=== PATIENT | male | born 1940 | race Caucasian/White ===

== ENCOUNTER → 2017-03-11 | Outpatient (CLI) | payer OTHER, BC ==
[2015-09-19 13:10] VITALS: BP 126/84; PULSE 59
[~2017-03-11] MED LIST: ASPI81TA21 PO; FESO4TAB PO; FISHOIL PO; MULTTAB PO; OMEP10CA2 PO
[2017-03-11 12:57] VITALS: BP 148/91; PULSE 78; TEMP 36.8; O2SAT 96
--- NOTE | 2017-03-11 13:35 | Radiation Oncology Follow-Up ---
Radiation Oncology Follow-Up Date of Visit Mar 11, 2017. 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 His urinary status is stable. He gave an AUA score of 12. Last year his score was 12. He completed expanded prostate cancer index composite for clinical practice and gave a score of 5 of 12 and urinary incontinence symptoms. He was score 3 of 12 urinary irritation symptoms. He gave a score 0 12 in bowel symptoms. He had a score 8 of 12 and sexual symptoms. He gave a score of 0 of 12 in hormonal vitality symptoms. His total was 16 of 60. He has had recheck PSAs most recent PSA was done at [facility] on 07/23/2016. This was less than 0.01. He does continue on Toviaz. He was referred for physical therapy. He continues to do the exercises that he was taught. He's been doing these for the past 5-6 months. He does feel that he has improvement of his urinary symptoms. Allergies Coded Allergies: No Known Allergies (Verified Allergy, Unknown, 06/11/07) Home Medications Scheduled Aspirin Enteric Coated (Ecotrin Or Generic), 81 MG PO DAILY Fesoterodine Fumarate (Toviaz), 1 TAB PO DAILY Fish Oil ([place]-3), 1 CAP PO DAILY Multivitamins/Minerals (Mvi With Minerals), 1 TAB PO DAILY Omeprazole (Prilosec), 10 MG PO DAILY Review of Systems Gastrointestinal: Symptoms: WNL Oral: Symptoms: No Problems Respiratory: Symptoms: WNL Urinary: Symptoms: Incontinence, Nocturia, Frequency Comments: Nocturia x 1, Frequency q 1-2 hours daily, PT for incontinence Skin: Symptoms: No Problems Physical Exam Vital Signs Date Time Temp Pulse Resp B/P Pulse Ox O2 Delivery O2 Flow Rate FiO2 03/11/17 12:57 36.8 78 16 148/91 96 Fatigue: None General Appearance: no apparent distress Eyes: normal inspection, EOMI ENT: normal ENT inspection, hearing grossly normal Neck: no adenopathy, thyroid normal Respiratory/Chest: lungs clear, no respiratory distress, no accessory muscle use Cardiovascular: regular rate, rhythm, no gallop, + systolic murmur (1/6 systolic murmur heard best at the aortic area.) Abdomen: non tender, soft Anal / Rectum: Normal sphincter tone. Prostate bed is flat. No rectal masses no rectal bleeding. Laboratory Studies PSA was drawn today prior to examination. Assessment & Plan Plan: He'll be notified as to results PSA. He continues with his physical therapy exercises for the bladder. Continue regular follow-up with Dr. Rodriguez and his primary care physician. We asked him to return to our office in 1 year. He'll be seeing Dr. Rodriguez in 6 months. He may call PSA questions or concerns in the interim. Total Time In Follow-Up I spent 20 minutes speaking to the patient and performing examination. I spent 15 minutes reviewing information in completing this note. Copy To Tylor Ritchie M.D.; Valentino Rodriguez MD
== END | disposition home or self-care (01) ==
LOC: C.ONC 12:43
PROVIDERS: ATTEND Physician Assistant Medical
DX: Z08 Encounter for follow-up examination after completed treatment for malignant neoplasm (principal); Z92.3 Personal history of irradiation; Z85.46 Personal history of malignant neoplasm of prostate

== ENCOUNTER → 2017-09-16 | Outpatient (CLI) | payer OTHER, BC | END | disposition home or self-care (01) | LOC: C.LAB 07:40 | PROVIDERS: ATTEND Urology | DX: C61 Malignant neoplasm of prostate (principal) ==

== ENCOUNTER → 2018-03-10 | Outpatient (CLI) | payer OTHER, BC ==
[~2018-03-10] MED LIST changes: +ASPI-319 PO; -ASPI81TA21 PO
[2018-03-10 13:02] VITALS: BP 129/85; PULSE 95; TEMP 36.5; O2SAT 96
--- NOTE | 2018-03-10 13:59 | Radiation Oncology Follow-Up ---
Radiation Oncology Follow-Up Date of Visit Mar 10, 2018. 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 His AUA score was 9. Last year his score was 12. He has been doing Kegel exercises. And the exercises that he was taught in physical therapy. He feels these have helped to improve his urinary status. He completed and expanded prostate cancer index composite for clinical practice and gave a score of 4 of 12 and urinary incontinence symptoms. He gave a score of 3 of 12 and urinary irritation symptoms. He gave a score of 0 of 12 and bowel symptoms. He gave a score of 8 of 12 and sexual symptoms. To note he marked this was not a problem. He gave a score of 1 of 12 in hormonal vitality symptoms. His total was 16 of 60. He does continue on Toviaz to help his urinary symptoms. He had a PSA September 16, 2017. That was found to be less than 0.010. Allergies Coded Allergies: No Known Allergies (Verified Allergy, Unknown, 06/11/07) Home Medications Scheduled Aspirin Enteric Coated (Ecotrin Or Generic), 81 MG PO DAILY Fesoterodine Fumarate (Toviaz), 1 TAB PO DAILY Fish Oil ([place]-3), 1 CAP PO DAILY Multivitamins/Minerals (Mvi With Minerals), 1 TAB PO DAILY Omeprazole (Prilosec), 10 MG PO DAILY Review of Systems Gastrointestinal: Symptoms: WNL GI Comments: occ bleeding with hemorrhoids Oral: Symptoms: No Problems Respiratory: Symptoms: WNL Urinary: Symptoms: Nocturia Comments: nocturia times 2 , occ dribbling Skin: Symptoms: No Problems Other Skin Symptoms: "to get stiches out of right knee tomorrow , site is healed " Physical Exam Vital Signs Date Time Temp Pulse Resp B/P (MAP) Pulse Ox O2 Delivery O2 Flow Rate FiO2 03/10/18 13:02 36.5 95 20 129/85 96 Fatigue: None General Appearance: no apparent distress Eyes: normal inspection, EOMI ENT: normal ENT inspection, hearing grossly normal Respiratory/Chest: lungs clear, no respiratory distress, no accessory muscle use Cardiovascular: regular rate, rhythm, no gallop, no murmur Abdomen: non tender, soft, no organomegaly Anal / Rectum: Normal sphincter tone. Prostate bed is flat. No rectal masses and no rectal bleeding. Extremities: no pedal edema Neurologic/Psychiatric: no motor/sensory deficits, alert, normal mood/affect Skin: warm/dry Pain Management Patient Reports Pain: No Side: Bilateral Patient Preferred Pain Scale: 0 - 10 Initial Pain Intensity: 0.0 Pain Management Plan He denies pain therefore requires no pain management. Laboratory Laboratory Results: pending Pathology Pathology Results: not applicable Imaging Imaging Studies: not applicable Assessment & Plan Plan: PSA was drawn today. He will be notified as to the results. Continue regular follow-up with his primary provider and Dr. Rodriguez. He continues to have recheck PSAs every 6 months. We asked him to return to our office in 1 year. He may call if he has any questions or concerns in the interim. Total Time In Follow-Up I spent 20 minutes speaking to the patient and performing examination. I spent 15 minutes reviewing information and completing this note. [place] Copy To Tylor Ritchie M.D.; Valentino Rodriguez MD
== END | disposition home or self-care (01) ==
LOC: C.ONC 12:55
PROVIDERS: ATTEND Physician Assistant Medical
DX: Z08 Encounter for follow-up examination after completed treatment for malignant neoplasm (principal); Z92.3 Personal history of irradiation; Z85.46 Personal history of malignant neoplasm of prostate